=== PATIENT | female | born 1970 | race Caucasian/White ===

== ENCOUNTER 2024-11-28 14:46 | Emergency (ER) | payer SELFPAY ==
[~2024-11-28] VITALS: Ht 149.9 cm; Wt 68.0 kg
[2024-11-28] MEDS ORDERED: KETOROLAC TROMETHAMINE 15 MG/ML VIAL ONE (15:25)
[2024-11-28] MEDS: KETOROLAC TROMETHAMINE 15 MG/ML VIAL IM ONE (15:33)
[2024-11-28] MEDS ORDERED: IBUP-1490 PO (16:43)
[2024-11-28 16:56] VITALS: BP 156/84; TEMP 98; O2SAT 97
== END 2024-11-28 16:56 | disposition home or self-care (01) ==
LOC: ER 14:50
DX: S09.90XA Unspecified injury of head, initial encounter (principal); M25.512 Pain in left shoulder; M25.552 Pain in left hip; M79.652 Pain in left thigh; I10 Essential (primary) hypertension; W18.39XA Other fall on same level, initial encounter; Y93.89 Activity, other specified; Y92.811 Bus as the place of occurrence of the external cause; Y99.8 Other external cause status
CPT/HCPCS: 99284; 96372; 72170; 73552; 73030; J1885